=== PATIENT | male | born 1955 | race Caucasian/White ===

== ENCOUNTER 2017-06-04 03:39 | Observation (INO) ==
[2017-06-04] MEDS ORDERED: MORPHINE 2 MG/1 ML SYRINGE IV STA (03:57)
[2017-06-04] MEDS ORDERED: ONDANSETRON 4 MG/2 ML VIAL IV STA (03:57)
[2017-06-04] MEDS ORDERED: ASPIRIN 325 MG TABLET PO STA ×2 (03:57→04:15)
[2017-06-04] MEDS ORDERED: TICAGRELOR 90 MG TABLET PO STA (03:57)
[2017-06-04] MEDS ORDERED: ENOXAPARIN 100 MG/ML SYRINGE SUBCUT STA (03:57)
[2017-06-04] MEDS ORDERED: ALUM/MAG/SIMETH/LIDO VISC 1:1 30 ML BOTTLE PO STA (03:57)
[2017-06-04] MEDS ORDERED: NITROGLYCERIN 2% OINT 1 INCH/GM PACK TOP STA (03:57)
[2017-06-04] MEDS ORDERED: ASPIRIN 325 MG TABLET ONE (04:09)
[2017-06-04] MEDS ORDERED: NITROGLYCERIN 2% OINT 1 INCH/GM PACK TOP ONE (04:09)
[2017-06-04] MEDS ORDERED: TICAGRELOR 90 MG TABLET ONE (04:09)
[2017-06-04] MEDS ORDERED: ENOXAPARIN 60 MG/0.6 ML SYRINGE ONE (04:09)
[2017-06-04] MEDS ORDERED: MORPHINE 2 MG/1 ML SYRINGE ONE ×2 (04:09→04:14)
[2017-06-04] MEDS ORDERED: ONDANSETRON 4 MG/2 ML VIAL ONE (04:09)
[2017-06-04] MEDS ORDERED: ENOXAPARIN 30 MG/0.3 ML SYRINGE ONE (04:10)
[2017-06-04] MEDS ORDERED: METOPROLOL TARTRATE 5 MG/5 ML VIAL IV STA ×2 (04:10→04:37)
[2017-06-04] MEDS ORDERED: ALUM/MAG/SIMETH/LIDO VISC 1:1 30 ML BOTTLE PO ONE (04:10)
--- NOTE | 2017-06-04 04:10 | Emergency Department Note ---
Som Handy Emily, am scribing for, and in the presence of, Niall Ross MD 04: 03. Vandana Handy Charles R, MD, personally performed the services described in this documentation, ascribed by Thais Kearns in my presence, and it is both accurate and complete . Arrival - Arrival Chief Complaint: Chest Pain Stated Complaint: Chest pain and jaw ED Nursing Triage Note: Pt arrives to triage with complaints of being woke up with chest pain that radiates to his jaw. Denies any nausea vomiting. + sob. Pt states that when he went to sleep last night he was having some discomfort in chest. Pt denies any previous heart complications. Pt is noted to be belching in triage. Pt has history of GERD but states that the pain is worse than any pain from that he has ever had. b/p right arm 180/106. b/p left arm 161/107 Mode of Arrival: Ambulatory Limitations: No Limitations Source: Patient, Significant other Time Seen by Provider: 06/04/17 03:49 - History of Present Illness HPI Narrative: Pt is a 62 y/o male who came to ED with c/o mild chest pain radiating left jawline pain that woke him up from sleep this morning. Pt describes chest pain as "tightness with mild squeezing." Pt had some diaphoresis and SOB, but denies nausea or arm pain. Pt does smoke occasional cigar but denies regular tobacco smoke or previous heart issues. FMHx of Dad had TIA. PMHx of GERD. Onset (ago): hour(s) Consistency: constant Severity: moderate Severity scale (1-10): 7 Quality: aching Allergies/Adverse Reactions: Allergies Allergy/AdvReac Type Severity Reaction Status Date / Time No Known Allergies Allergy Verified 06/04/17 03:40 Home Medications: Home Medications Medication Instructions Recorded Confirmed Type Omeprazole 20 mg PO DAILY 06/04/17 06/04/17 History Review of System - Review of System 12 point system: reviewed and no additional remarkable complaints except as stated - Review of System Constitutional: Present: diaphoresis (mild). Absent: chills, fever Respiratory: Present: respiratory distress (SOB) Cardiovascular: Present: chest pain (tightness with mild squeezing, that radiates to jawline ) Gastrointestinal: Absent: abdominal pain, nausea Musculoskeletal: Present: neck pain (left side jawline pain). Absent: arm pain Skin: Absent: rash Neurological: Absent: headache Medical,Surgical,& Family Hx - Medical History Gastrointestinal: History of: GERD - Surgical History Surgical History: noncontributory - Family History Family History: noncontributory - Social History Smoking Status: Never smoker Frequency of Alcohol Use: Occasionally Type of Drug Use: None Marital Status: Lives With:: Spouse Functional capacity: independent ambulation Exam Vital Signs: Vital Signs Temperature 98.2 F 06/04/17 03:39 Pulse Rate 73 06/04/17 03:39 Respiratory Rate 20 06/04/17 03:39 Blood Pressure 180/106 06/04/17 03:39 O2 Sat by Pulse Oximetry 98 06/04/17 03:39 - General General appearance: alert, in no apparent distress - Head Head exam: Present: atraumatic, normocephalic - Eye Eye exam: Present: PERRL, EOMI - ENT ENT exam: Present: mucous membranes moist. Absent: mucous membranes dry - Neck Neck exam: Present: full ROM. Absent: tenderness - Chest Chest inspection: Present: symmetric chest wall rise. Absent: tenderness - Respiratory Respiratory exam: Present: normal lung sounds bilaterally. Absent: respiratory distress - Cardiovascular Cardiovascular exam: Present: regular rate, normal rhythm, normal heart sounds - Extremities Exam Extremities exam: Present: full ROM. Absent: tenderness, pedal edema - Neurological Exam Neurological exam: Present: alert, oriented X3, CN II-XII intact. Absent: motor sensory deficit - Psychiatric Psychiatric exam: Present: normal affect, normal mood - Skin Skin exam: Present: warm, dry Course - Consultations Consultation #1: Called Dr. Oconnor he agreed STEMI call Dr. Fabian Investigative Writer was called Time: 03:55 Consultation #2: Dr Fabian notified Investigative Writer activated at [id number] for a STEMI Time: 04:00 Results - Labs CBC & BMP: 06/04/17 04:00 06/04/17 04:00 Lab Results: I have reviewed the patients labs Critical Care Time Critical Care Time: Yes Total Critical Care Time: 45 (minutes) Disposition Clinical Impression: Chest pain, ST elevation myocardial infarction (STEMI), Hypertensive urgency Case discussed with: patient, patient's family Disposition: Still a Patient Condition: Guarded Time of Disposition: 04:41
[2017-06-04 04:12] LABS: Basophils # 0.1 10*3/uL (0.0-0.2); Basophils % 0.7 % (0.0-0.8); Eosinophils # 0.3 10*3/uL (0.0-0.87); Eosinophils % 3.6 % (0.00-10.9); Hematocrit 43.9 VOL% (42.0-52.0); Hemoglobin 15.5 GM/DL (14.0-18.0); Immature Granulocytes % 0.2 %; Immature Granulocytes Absolute 0.02 #; Lymphocytes # 2.4 10*3/uL (1.4-4.0); Lymphocytes % 29.4 % (21.2-54.2); Mean Corpuscular HGB Conc 35.3 GM/DL (32-36); Mean Corpuscular Hemoglobin 31 PG (27-34); Mean Corpuscular Volume 86.8 FL (87-102); Mean Platelet Volume 9.6 FL (9.6-12.0); Monocytes % 12.3 % (1.7-12.7); Neutrophils # 4.3 10*3/uL (1.4-7.4); Neutrophils % 53.8 % (38.7-73.9); Platelet Count 218 T/CUMM (130-400); Red Blood Count 5.06 MC/CUMM (3.8-5.5); Red Cell Distribution Width 12.8 % (9.3-17.3); White Blood Count 8.1 T/CUMM (4-12)
[2017-06-04] MEDS ORDERED: METOPROLOL TARTRATE 5 MG/5 ML VIAL IV ONE ×2 (04:14→04:32)
[2017-06-04 04:26] LABS: Magnesium 2.6 MG/DL (1.8-2.4)
[2017-06-04 04:32] LABS: Bilirubin,Total 0.6 MG/DL (0.2-1.0); Calcium 9.5 MG/DL (8.5-10.1); Osmolality,Calculated 277.5 MOS/KG (273-304); Potassium 3.9 MMOL/L (3.5-5.1); Total Protein 7.3 G/DL (6.4-8.3)
[2017-06-04] MEDS ORDERED: NITROGLYCERIN DRIP 50 MG/250 ML BOTTLE IV ONE (04:32)
[2017-06-04] MEDS ORDERED: LIDOCAINE 1% 20 ML VIAL ONE (04:39)
[2017-06-04] MEDS ORDERED: HEPARIN/NACL 0.9% 2 UNITS/ML 1,000 ML IV ONE (04:39)
[2017-06-04] MEDS ORDERED: NITROGLYCERIN DRIP 50 MG/250 ML BOTTLE IV SCH ×2 (04:40→05:00)
[2017-06-04] MEDS ORDERED: MIDAZOLAM 2 MG/2 ML VIAL ONE (04:41)
[2017-06-04] MEDS ORDERED: HYDROmorphone 2 MG/1 ML VIAL ONE (04:41)
--- NOTE | 2017-06-04 04:46 | Cardiology History & Physical ---
History of Present Illness History of present illness: History and physical 62-year-old man woke up at 3 AM with midsternal chest pain that moved up into his left jaw. He had chest pain off and on yesterday but did not tell his and. EKG showed sinus rhythm with subtle ST elevation in the inferior and lateral leads. First troponin is negative. Blood pressures 175/115. O2 sat is 99 on 2 L cannula. Pulse is 78 and regular. No prior history of chest pain. The patient smokes a couple cigars daily. He consumes one case of beer per week. No history of pancreatitis or DTs. Denies melena. He took blood pressure medication the past but none in several years. No clinical history of stroke. No history of diabetes. He denies melena. No documented peptic ulcer. He does take Prilosec 20 mg daily for reflux symptoms. He ate CABG butter beans and him for dinner last night. He 6 feet tall 195 pounds weight is been stable. He sleeps on one pillow and has nocturia once nightly. Cholesterol has not been recently checked. The patient is under a lot of work stress. 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 He has have 2 children and no grandchildren. They live in [place]. Father had hypertension from a stroke. Mother is 87 and takes no medications. He has brothers 64 and in good health. Another brother 65 and has hypertension. Surgeries include bilateral knee scope, left Achilles tendon repair. No allergies. Patient has been treated with aspirin 325 mg, 5 mg IV Lopressor, 90 mg Lovenox, 30 mg Brilinta, Nitropaste Blood pressure 170/115 pulse is 82 Thierry respirations 20 his skin is warm. He is complaining of midsternal chest pain. No carotid bruit. Flat neck veins. Clear lungs. Regular rhythm. No murmur or gallop. Abdomen soft. Femoral pulses 2+ without bruits of pulses 2+ no edema Impression Chest pain subtle ST elevation inferolateral leads, rule out [place] Hypertension untreated Tobacco abuse cigars EtOH abuse at least one case of beer per week 6 feet tall 195 pounds GE reflux on Prilosec Status post bilateral knee scopes Family history hypertension and stroke Available lab data White count 8.1 hemoglobin 15.5 hematocrit 43.9 platelet count 218,000 sodium 139 potassium 3.9 BUN 14 creatinine 1.0 Glucose 92 magnesium 2.6 normal LFTs and negative first troponin. Plan Cardiac cath possible stent. Procedure risk benefits discussed with patient and his and. All questions answered. He agrees he is outlined. Lab data pending Will need risk factor modification Begin BP meds Patient is followed locally by Dr. Stephen Home Medications Medication Instructions Recorded Confirmed Type Omeprazole 20 mg PO DAILY 06/04/17 06/04/17 History Allergies Allergy/AdvReac Type Severity Reaction Status Date / Time No Known Allergies Allergy Verified 06/04/17 03:40 Medical,Surgical,& Family Hx - Medical History Gastrointestinal: History of: GERD - Social History Smoking Status: Never smoker Frequency of Alcohol Use: Occasionally Type of Drug Use: None Cardiology Physical Exam - Constitutional Vitals: Vital Signs Temp Pulse Resp BP Pulse Ox 98.2 F 73 20 180/106 98 06/04/17 03:39 06/04/17 03:39 06/04/17 03:39 06/04/17 03:39 06/04/17 03:39 Intake and Output 06/03/17 06/03/17 06/04/17 15:59 23:59 07:59 Other: Weight 88.451 kg Patient Weight 06/04/17 23:59 Weight 88.451 kg Result/EKG - Labs CBC & BMP: 06/04/17 04:00 06/04/17 04:00 Labs: Laboratory Results - last 24 hr 06/04/17 06/04/17 06/04/17 04:00 04:00 04:00 WBC 8.1 RBC 5.06 Hgb 15.5 Hct 43.9 MCV 86.8 L MCH 31 MCHC 35.3 RDW 12.8 Plt Count 218 MPV 9.6 Neut % (Auto) 53.8 Lymph % (Auto) 29.4 Dickey % (Auto) 12.3 Eos % (Auto) 3.6 Baso % (Auto) 0.7 Neut # (Auto) 4.3 Lymph # (Auto) 2.4 Dickey # (Auto) 1.0 H Eos # (Auto) 0.3 Baso # (Auto) 0.1 Immature Gran % 0.2 Nucleated RBC % 0.0 Immature Gran # 0.02 Nucleated RBCs # 0.00 Immature Plt Fraction 0.0 Sodium 139 Potassium 3.9 Chloride 106 Carbon Dioxide 29 Anion Gap 7.9 BUN 14 Creatinine 1.00 GFR Calculation 97 BUN/Creatinine Ratio 14.00 Glucose 92 Calculated Osmolality 277.5 Calcium 9.5 Magnesium Total Bilirubin 0.60 AST 24 ALT 31 Alkaline Phosphatase 97 Troponin I < 0.015 Total Protein 7.3 Albumin 4.0 Globulin 3.3 Albumin/Globulin Ratio 1.2 Lipase 06/04/17 04:00 WBC RBC Hgb Hct MCV MCH MCHC RDW Plt Count MPV Neut % (Auto) Lymph % (Auto) Dickey % (Auto) Eos % (Auto) Baso % (Auto) Neut # (Auto) Lymph # (Auto) Dickey # (Auto) Eos # (Auto) Baso # (Auto) Immature Gran % Nucleated RBC % Immature Gran # Nucleated RBCs # Immature Plt Fraction Sodium Potassium Chloride Carbon Dioxide Anion Gap BUN Creatinine GFR Calculation BUN/Creatinine Ratio Glucose Calculated Osmolality Calcium Magnesium 2.6 H Total Bilirubin AST ALT Alkaline Phosphatase Troponin I Total Protein Albumin Globulin Albumin/Globulin Ratio Lipase 320.0
--- NOTE | 2017-06-04 04:46 | History and Physical Update ---
Sedation H&P Update - History and Physical H&P was reviewed, the patient examined and there: are no changes in the patients condition since last H&P was completed. - Dictation Physical: refer to H&P completed by admitting physician - Sedation Plan for Sedation: moderate Patient Consent: Risks and benefits were discussed with patient,including infection, ASA Class: III Airway Assessment: Class II: Soft palate, uvula, fauces visible
[2017-06-04] MEDS ORDERED: NITROGLYCERIN 50 MG/250 ML BOTTLE IV ONE (04:56)
[2017-06-04] MEDS ORDERED: ZALEPLON 5 MG CAPSULE PO PRN (05:42)
[2017-06-04] MEDS ORDERED: ONDANSETRON 4 MG/2 ML VIAL IV PRN (05:42)
--- NOTE | 2017-06-04 05:42 | Cardiology Operative Report ---
Date of Procedure:: 06/04/17 Pre-op diagnosis: Chest pain hypertensive urgency Post-op diagnosis: same Procedure: Cardiac catheterization procedure note #1 left heart catheterization #2 selective coronary angiography #3 left ventriculography #4 aortogram Omnipaque was used for the procedure Description of procedure The patient presented to the emergency room with chest pain and hypertensive urgency and subtle ST elevation inferior and lateral leads and was brought urgently to the [facility]. Following sterile preparation draping of the right groin, local anesthesia was achieved by infiltration with 1% Xylocaine. Using a Cook needle the right femoral artery was cannulated and a #6 sheath was inserted. A 6 Japanese pigtail catheter was introduced and advanced retrograde across aortic valve into the left ventricle and the end-diastolic pressure was recorded. Left ventriculography was performed in the MONTANEZ projection using 24 cc of contrast material. A pullback recording made across phytic valve. The pigtail catheter was exchanged for a 6 Japanese left Leyda catheter and left coronary angiography was performed in several MONTANEZ and UZBEK projections. The catheter change for a 6 Japanese right Amplatz catheter and right coronary angiography was performed in MONTANEZ and UZBEK projections. Catheter change for a 6 Japanese pigtail catheter and a aortogram was performed in the UZBEK projection using 40 cc of contrast. The catheter and sheath were then removed and the femoral arch [place] site was sealed percutaneously minx closure device with prompt cessation of bleeding and prompt return of femoral and foot pulses. No complications ensued. The patient transported back to CCU in stable condition Hemodynamic data Aortic pressure 144/89 mean 110 Left ventricle 144/72 Selective coronary angiography The left main trunk is widely patent and trifurcates. The LAD is a moderate- sized vessel wraps on the apex. It has mild proximal irregularities only. A large first diagonal branch is widely patent. The intermediate branch is widely patent. The circumflex system is tortuous and widely patent. The right coronary large super dominant vessel that is widely patent throughout its course with mild proximal irregularities only. The posterior descending artery and posterior ventricular branches are widely patent and extend without to the apex. Left ventriculography The end-systolic and end-diastolic labs are normal. Ejection fraction is 60%. No evidence for mitral regurgitation under the conditions of the study. Aortogram The ascending aorta is normal in size and contour. Aortic valve is trileaflet and there is no AI. No evidence for aortic dissection. Conclusions #1 LVEDP 12 #2 ejection fraction 60% #3 no mitral regurgitation #4 no aortic valve gradient #5 aortogram--- no AI, no aortic dissection #6 widely patent coronaries with mild luminal irregularities only Disposition The patient has widely patent coronary arteries and normal ventricular function ejection fraction 60%. Aortogram shows no AI and no aortic dissection. He does have hypertensive heart disease currently on IV nitroglycerin and IV Lopressor. He will continue normal saline hydration and his IV nitro will be weaned off and oral blood pressure medications will be started. Cine pictures were reviewed with the patient's Jovana. medical therapy risk factor modification recommended. Implants: No implants Anesthesia: moderate conscious sedation Surgeon / Physician: Ru Fabian Estimated blood loss: minimal Specimens: none sent Condition: stable Disposition: ICU/CCU
--- NOTE | 2017-06-04 05:58 | EKG Report ---
Stationary ECG Study [facility] Test Date: 06/04/2017 3:44:40 AM Pat Name: DURGA CRISOSTOMO Department: Room: Gender: M Diesel Engine Mechanic: Ezekiel nascimento rn : 1955 Requested by: Niall Duenas Order Number: [id number] Reading MD: DURGA NICOLE Intervals [place] Rate: 72 P: 82 [place]: 198 QRS: 42 QRSD: 102 T: 44 QT: 381 QTc: 405 Interpretive Statements SINUS RHYTHM Electronically Signed On 06-04-17 06:13:11 CDT by DURGA NICOLE [email or web address]
[2017-06-04] MEDS ORDERED: SODIUM CHLORIDE 0.9% 1,000 ML IV SCH (06:00)
--- NOTE | 2017-06-04 06:53 | XRay Report ---
XR chest 1V portable Indication: Chest pain Comparison: 23 December 2012 Findings: The heart and mediastinum are normal in size and configuration. The pulmonary vascularity is normal in caliber. No lung infiltrates, effusions, pneumothorax or other abnormality is demonstrated. Impression: Normal chest x-ray PROCEDURE INTERPRETED AT [facility] DEPARTMENT OF RADIOLOGY Final Report Signed by: Dr. Godfrey Calles
--- NOTE | 2017-06-04 07:54 | EKG Report ---
Stationary ECG Study [facility] Test Date: 06/04/2017 7:54:44 AM Pat Name: DURGA CRISOSTOMO Department: Room: 126 Gender: M Black Top Roller: GEREMIAS : 1955 Requested by: Niall Duenas Order Number: [id number] Reading MD: FAYE MONTGOMERY Intervals [place] Rate: 59 P: 52 [place]: 166 QRS: 22 QRSD: 109 T: -5 QT: 420 QTc: 418 Interpretive Statements SINUS RHYTHM Anterolateral ST elevation, consider injury INFERIOR MYOCARDIAL INFARCTION, OF INDETERMINATE AGE WITH POSTERIOR EXTENSION Electronically Signed On 06-04-17 12:32:34 CDT by FAYE MONTGOMERY [email or web address]
[2017-06-04 08:46] LABS: Troponin I Only < 0.015 NG/ML (0.00-0.045)
--- NOTE | 2017-06-04 08:48 | Event Note ---
Patient was seen and examined in the CCU. He is doing well post catheterization. He did not have a STEMI. All coronary arteries were widely patent. Right groin is soft without bleeding, hematoma and bruit. Distal pulses 2+. Patient remains on bedrest. Instructed to lie flat with right leg straight for 6 more hours. Patient verbalizes understanding. Vital signs are stable. Patient without points of chest pain, heaviness and tightness. Nitroglycerin has been discontinued. Will check back on patient later this evening. Depending on how he has done post catheterization, he will either be transferred upstairs to the telemetry unit or could possibly be discharged home.
[2017-06-04] MEDS: PANTOPRAZOLE 40 MG TABLET PO SCH (08:57)
[2017-06-04] MEDS: CARVEDILOL 6.25 MG TABLET PO SCH ×2 (08:57→17:42)
[2017-06-04] MEDS ORDERED: ASPIRIN EC 81 MG TABLET PO SCH (09:00)
--- NOTE | 2017-06-04 10:39 | EKG Report ---
Stationary ECG Study [facility] Test Date: 06/04/2017 10:39:53 AM Pat Name: DURGA CRISOSTOMO Department: Room: 126 Gender: M Medical Records Manager: GEREMIAS : 1955 Requested by: Niall Duenas Order Number: [id number] Reading MD: FAYE MONTGOMERY Intervals [place] Rate: 61 P: 53 [place]: 201 QRS: 33 QRSD: 118 T: -2 QT: 420 QTc: 423 Interpretive Statements SINUS RHYTHM POSSIBLE RIGHT VENTRICULAR CONDUCTION DELAY INFERIOR MYOCARDIAL INFARCTION, PROBABLY OLD WITH POSTERIOR EXTENSION ST elevation less prominent Electronically Signed On 06-04-17 12:38:18 CDT by FAYE MONTGOMERY [email or web address]
[2017-06-04 15:08] LABS: Risk Ratio 3.29; VLDL CHOLESTEROL 33.4 MG/DL
[2017-06-04] MEDS: ISOSORBIDE MONONITRATE 30 MG TABLET PO SCH (16:26)
[2017-06-04 17:36] LABS: Troponin I Only < 0.015 NG/ML (0.00-0.045)
[2017-06-04] MEDS ORDERED: SIMVASTATIN 20 MG TABLET PO SCH (21:00)
--- NOTE | 2017-06-05 07:43 | EKG Report ---
Stationary ECG Study [facility] Test Date: 06/05/2017 7:42:56 AM Pat Name: RU CRISOSTOMO Department: Room: 126 Gender: M C.O.D. Biller: GEREMIAS : 1955 Requested by: Ru Fabian Order Number: [id number] Reading MD: ROBERT CLEMENT Intervals [place] Rate: 64 P: 62 [place]: 198 QRS: 51 QRSD: 108 T: 51 QT: 401 QTc: 411 Interpretive Statements SINUS RHYTHM POSSIBLE INFERIOR MYOCARDIAL INFARCTION, AGE UNKNOWN IF PRESENT EARLY REPOLARIZATION Electronically Signed On 06-05-17 18:20:11 CDT by ROBERT CLEMENT [id number]
--- NOTE | 2017-06-05 08:07 | Discharge Summary ---
Hospital Course - Hospital Course Hospital Course: Resident Care Manager Rn: Dr. Fabian Patient presented to [facility] June 04, 2017 with midsternal chest discomfort. EKG revealed subtle ST elevation in the inferior and lateral leads. First set of cardiac biomarkers were negative. STEMI was activated and patient was taken emergently to the catheterization lab per Dr. Akshat Fabian with the following impressions noted: Conclusions 1. LVEDP 12 2. ejection fraction 60% 3. no mitral regurgitation 4. no aortic valve gradient 5. aortogram--- no AI, no aortic dissection 6. widely patent coronaries with mild luminal irregularities only Disposition The patient has widely patent coronary arteries and normal ventricular function ejection fraction 60%. Aortogram shows no AI and no aortic dissection. He does have hypertensive heart disease currently on IV nitroglycerin and IV Lopressor. Post catheterization patient was transported back to the CCU in stable condition. He has done well post catheterization and has been without complications. This was likely hypertensive heart disease, vasospasm may have also played a role. Imdur and Coreg were initiated. Lipid panel was checked. LDL 103. Simvastatin was initiated this hospitalization. Patient will need repeat lipid panel in 4-6 weeks. Patient has been without recurrent complaints of chest pain, heaviness or tightness. Cardiac biomarkers remained negative 5. Right groin is soft without bleeding, hematoma and bruit. Distal pulses 2+ . Patient has ambulated around the CCU unit without difficulty. Right groin has remained stable post ambulation. Right groin precautions have been reviewed with the patient. He verbalizes understanding. Patient will be given prescription for aspirin and discharge. Can consider calcium charbel as an outpatient for further treatment of vasospasm. Blood pressure will not allow initiation at this time. Labs been reviewed. Creatinine stable post catheterization. Patient is anxious for discharge home today. Having felt that he has met maximal medical therapy, he will be discharged home in stable condition. Patient has been given a follow-up appoint with Dr. Fabian in 3-4 weeks with BMP and EKG. Patient verbalizes understanding of discharge instructions and discharge medications. - Time spent with patient Time with patient DS: Greater than 30 minutes Diagnosis - Discharge Diagnosis (1) Coronary artery spasm Status: Resolved (2) Dyslipidemia Status: Acute (3) Hypertension Status: Acute (4) Hypertensive heart disease Status: Acute Specialty Discharge - Follow Up or Referrals Follow up with: Ru Fabian MD [Physician] - (3-4 weeks with BMP and EKG) Discharge Plan - Discharge Data Disposition: Disch To Home/Self Care Condition at Discharge: Stable Discharge Diet: heart healthy Activity: no lifting (Avoid heavy lifting and squatting 1 week), other (Post cath expectations) Hygiene: may shower, other (Post cath expectations) Weight Bearing at Discharge: other (Post cath expectations) Driving: other (Post cath expectations) Contact your physician if you experience:: fever over 101, Difficulty voiding, Redness or swelling, Nausea/Vomiting, Shortness of breath, Bleeding, pain uncontrolled by pain medications - Discharge Medications New Aspirin EC Tab 81 mg PO DAILY #30 tablet Carvedilol [Coreg] 6.25 mg PO BID W/MEALS #60 tablet Isosorbide Mononitrate [Imdur] 30 mg PO DAILY #30 tablet Simvastatin [Zocor] 20 mg PO BEDTIME #30 tablet Continue Omeprazole 20 mg PO DAILY - Follow Up or Referral Follow Up: Ru Fabian MD [Physician] - (3-4 weeks with BMP and EKG) - Forms/Instructions Instructions: Myocardial Infarction (GEN), Coronary Artery Disease (GEN), Left Heart Catheterization (DC), Heart Healthy Diet (GEN) Exam - Constitutional Vitals: Period Temp Pulse Resp BP Sys/Leos Pulse Ox Last 24 Hr 97.8 F-98.9 F 59-72 10-21 99-136/60-90 94-99 Exam: General: Appears well with no apparent distress. Pleasant and cooperative. Appears comfortable. HEENT: PERRL, normocephalic, atraumatic. Mucous membranes moist. No jaundice noted. Conjunctiva moist and clear, sclerae anicteric Neck: No JVD/HJR, no thyromegaly or lymphadenopathy noted. No carotid bruit appreciated Cardiac: Regular rate and rhythm. No murmur rub or gallop. Lungs: Clear to auscultation without accessory muscle use to assist the respiratory pattern. Not requiring oxygen. Abdomen: Soft, bowel sounds normoactive. Nontender and nondistended. No abdominal bruit or thrill noted. No masses noted. Extremities: No clubbing, cyanosis noted. No edema noted. Upper extremity pulses 2+. Lower extremity pulses 2+. Capillary refill less than 3 seconds. Right groin soft without bleeding, hematoma and bruit. Distal pulses 2+. Skin: No unusual lesions or rashes. No skin breakdown appreciated. Neuro: Awake, alert and oriented 3. Moves all extremities well without hemiparesis or paralysis. No essential tremor is appreciated. Discharge Results Procedures and tests throughout hospitalization: Pending Orders 06/04/17 03:59 Urinalysis Stat 06/04/17 04:45 CL heart Stat 06/04/17 06:00 MRSA Surveillence, Inf Control Routine 06/05/17 07:35 Basic Metabolic Panel IN AM Labs on day of discharge: Labs from last 24 hours 06/05/17 06/04/17 06/04/17 07:14 16:44 10:19 POC Glucose 91 Total Creatine Kinase 85 CK-MB (CK-2) < 1.0 Troponin I < 0.015 Triglycerides 167 H Cholesterol 194 LDL Cholesterol 103.0 VLDL Cholesterol 33.4 HDL Cholesterol 59 Heart Disease Risk Ratio 3.29 06/04/17 06/04/17 06/04/17 10:19 07:35 07:35 POC Glucose Total Creatine Kinase 101 CK-MB (CK-2) 1.2 Troponin I < 0.015 < 0.015 < 0.015 Triglycerides Cholesterol LDL Cholesterol VLDL Cholesterol HDL Cholesterol Heart Disease Risk Ratio - Imaging and Cardiology Cardiology Procedure: report reviewed by me DS: Provider Date of admission: 06/04/17 05:42 Primary care physician: . No PCP Attending physician on admission: Ru Fabian MD Consults: 06/04/17 05:42 Consult to Cardiac Rehabilitation [CONS] Routine Reason for Cardiac Rehabilitation: Risk Factor Modification Discharging clinician: Romina Eastman NP Expected date of discharge: 06/05/17
[2017-06-05 08:24] LABS: Calcium 8.4 MG/DL (8.5-10.1)
[2017-06-05 08:25] LABS: Osmolality,Calculated 275.4 MOS/KG (273-304); Potassium 4.1 MMOL/L (3.5-5.1)
[2017-06-05 08:42] VITALS: BP 126/81
[2017-06-05] MEDS: CARVEDILOL 6.25 MG TABLET PO SCH (08:47)
[2017-06-05] MEDS: PANTOPRAZOLE 40 MG TABLET PO SCH (08:48)
[2017-06-05] MEDS: ISOSORBIDE MONONITRATE 30 MG TABLET PO SCH (08:48)
[2017-06-05] MEDS ORDERED: ENOXAPARIN 40 MG/0.4 ML SYRINGE SUBCUT SCH (09:00)
[2017-06-05] MEDS ORDERED: ASPIRIN EC 81 MG TABLET PO SCH (09:00)
== END 2017-06-05 10:05 | disposition home or self-care (01) ==
LOC: N.ED 03:39 → N.CC 04:43 → INTOOBSV 05:42 → N.CC 05:42
PROVIDERS: ADMIT Internal Medicine Cardiovascular Disease; ATTEND Internal Medicine Cardiovascular Disease
PROC: CLCCHCL (ICD-10-PCS; 2017-06-04 05:00)